=== PATIENT | female | born 1955 | race Caucasian/White ===

== ENCOUNTER 2024-05-04 08:41 | Emergency (ER) | payer MEDICARE, OTHER ==
[~2024-05-04] VITALS: Ht 157.5 cm; Wt 77.0 kg
[2024-05-04] MEDS ORDERED: CEPH500T MT (09:35)
[2024-05-04 09:53] VITALS: BP 136/87; PULSE 91; RESP 18; TEMP 98.6
[2024-05-06] MEDS ORDERED: LOSA1TAB37 MT (10:13)
[2024-05-08] MEDS ORDERED: DOXY100C5 MT (10:50)
[2024-05-08] MEDS ORDERED: AMOX1TAB16 MT (10:50)
[2024-05-08] MEDS ORDERED: TRAM50TA3 MT (10:50)
[2024-05-08] MEDS ORDERED: ATOR20TA MT (10:51)
== END 2024-05-04 09:54 | disposition home or self-care (01) ==
LOC: ER 09:02
DX: L03.115 Cellulitis of right lower limb (principal); I10 Essential (primary) hypertension; Z90.710 Acquired absence of both cervix and uterus
CPT/HCPCS: 99283